=== PATIENT | female | born 1960 | race Caucasian/White ===

== ENCOUNTER → 2017-10-28 16:27 | Outpatient (CLI) | payer OTHER, SELFPAY ==
--- NOTE | 2017-10-28 | DI.MRI.S_ITS ---
PROCEDURE: MR CERVICAL SPINE WO CON INDICATIONS: CERVICAL SPINE STENOSIS TECHNIQUE: Noncontrast sagittal T1 spin echo and T2 fast spin echo, sagittal STIR, foraminal oblique sagittal T2 fast spin echo, and axial gradient echo or T2 fast spin echo through the cervical spine. COMPARISON: None. FINDINGS: Image quality: Diagnostic, with note made of motion artifact. Alignment and Curvature: There is normal bony alignment. Bone Marrow: Marrow demonstrates normal overall signal. Spinal Cord: Visualized spinal cord has normal size and signal. No cerebellar tonsillar herniation. Paraspinous Soft Tissues: No paravertebral masses. Prevertebral soft tissues are normal in thickness. C2-C3: Mild loss of disc height is seen. Moderate disc osteophyte complex is seen, which is eccentric to the right. There is moderate to prominent right-sided and mild left-sided facet hypertrophy seen. There is moderate to severe right-sided and mild left-sided neural foraminal narrowing seen. Minimal central canal narrowing is seen. C3-C4: The disc height is relatively well-preserved. Moderate generalized disc osteophyte complex is seen. Moderate to prominent facet hypertrophy is seen. There is moderate to severe bilateral neural foraminal narrowing seen, right worse than left. Mild central canal narrowing is seen. C4-C5: Moderate loss of disc height is seen. There is loss of disc signal. Moderate generalized disc osteophyte complex is seen. There is mild right-sided and moderate to severe left-sided facet hypertrophy seen. Moderate to severe bilateral neural foraminal narrowing is seen, left worse than right. Moderate central canal narrowing is seen. C5-C6: Moderate loss of disc height is seen. Loss of disc signal is seen. Moderate to prominent disc osteophyte complex is seen, which is eccentric to the right. There is at least moderate bilateral neural foraminal narrowing seen. Moderate to severe bilateral neural foraminal narrowing is seen, right worse than left. Moderate central canal narrowing is seen. C6-C7: Mild loss of disc height is seen. Loss of disc signal is seen. Mild to moderate disc osteophyte complex is seen, which is eccentric to the left. Moderate facet joint hypertrophy is seen. There is at least moderate left-sided and mild right-sided neural foraminal narrowing seen. Mild central canal narrowing is seen. C7-T1: The disc height is relatively well-preserved. Moderate to severe bilateral neural foraminal narrowing is seen. 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 Mild central canal narrowing is seen. IMPRESSION: Multiple levels of cervical spine degenerative change are seen, which are overall most prominent at the C4-C5 and the C5-C6 levels. Dictated by: Edwin Bradshaw M.D. on 10/28/2017 at 16:15 Approved by: Edwin Bradshaw M.D. on 10/28/2017 at 16:21
== END ==
PROVIDERS: PCP Family Medicine; Visit Provider Family Medicine
DX: M48.02 Spinal stenosis, cervical region (principal); M50.321 Other cervical disc degeneration at C4-C5 level; M50.322 Other cervical disc degeneration at C5-C6 level
CPT/HCPCS: 72141